=== PATIENT | female | born 1970 | race Caucasian/White ===

== ENCOUNTER → 2016-10-30 | Outpatient (CLI) | payer OTHER | LOC: HEART 5 08:06 | DX: I20.9 Angina pectoris, unspecified (principal) | CPT/HCPCS: 78452; A9502; J2785 ==

== ENCOUNTER → 2020-08-25 | Day surgery (SDC) | payer OTHER ==
[~2020-08-25] MED LIST: BUTALBITAL-ASA1 EACH PO; CLARITIN10 MG PO; CLONAZEPAM1 MG PO; DICLOFENAC GEL TD; DOK100 M1 PO; ECOTRIN81 MG PO; EPIPEN 2-P0.3 MG/0.3 SQ; FISH OIL PO; FROVA2.5 MG PO; FUROSEMIDE20 MG PO; GABAPENTIN600 MG PO; HYDROCODON-ACE1 EAC4 PO; ISORDIL TAB 1010 MG PO; KENALOG 0.5% CR15 GM TD; LACTULOSE10 GM/151 PO; LEXAPRO10 MG PO; MELOXICAM15 MG PO; MIRTAZAPINE7.5 MG PO; NEXIUM PO; NITROGLYCERIN0.4 MG SL; PROAIR HFA8.5 GM INH; TOPAMAX 25 MG T25 MG PO; TOPROL XL 25 MG25 MG PO; TOPROL XL 50 MG50 MG PO; VITAMIN B-121000 MCG PO; VITAMIN D PO; ZANAFLEX4 MG PO; ZESTRIL10 MG PO; ZYPREXA10 MG PO
== END | disposition home or self-care (01) ==
LOC: OR 07:53
PROVIDERS: Internal Medicine Gastroenterology
PROC: 0DB78ZX Excision of Stomach, Pylorus, Via Natural or Artificial Opening Endoscopic, Diagnostic (ICD-10-PCS; 2020-08-25)
PROC: 0DB68ZX Excision of Stomach, Via Natural or Artificial Opening Endoscopic, Diagnostic (ICD-10-PCS; 2020-08-25)
PROC: 0DB38ZX Excision of Lower Esophagus, Via Natural or Artificial Opening Endoscopic, Diagnostic (ICD-10-PCS; principal; 2020-08-25 09:58)
DX: K21.00 Gastro-esophageal reflux disease with esophagitis, without bleeding (principal); K31.9 Disease of stomach and duodenum, unspecified; K44.9 Diaphragmatic hernia without obstruction or gangrene; K29.50 Unspecified chronic gastritis without bleeding; K59.03 Drug induced constipation; T40.2X5A Adverse effect of other opioids, initial encounter; I10 Essential (primary) hypertension; E78.5 Hyperlipidemia, unspecified; M19.90 Unspecified osteoarthritis, unspecified site; G43.909 Migraine, unspecified, not intractable, without status migrainosus; F17.210 Nicotine dependence, cigarettes, uncomplicated; Z79.1 Long term (current) use of non-steroidal anti-inflammatories (NSAID); Z79.82 Long term (current) use of aspirin; Z79.899 Other long term (current) drug therapy
CPT/HCPCS: J2704; J7040

== ENCOUNTER → 2021-11-03 | Outpatient (CLI) | payer OTHER | LOC: HEART 5 08:15 | DX: I20.9 Angina pectoris, unspecified (principal) | CPT/HCPCS: 78452; A9502; J2785 ==